=== PATIENT | female | born 1965 | race Caucasian/White ===

== ENCOUNTER 2017-07-06 18:30 | Outpatient (RCR) | payer MEDICAID, SELFPAY ==
--- NOTE | 2017-06-11 13:38 | HP.PTEVAL ---
Patient's Visit Information NADINE PETERSON is a 51 year old F referred to Physical Therapy by Sabino Hunt NP.SAVANNAHPSIT with a diagnosis of DDD AND LUMBAR DISC HERNIATION WITH RADICULOPATHY. Date of Evaluation: 06/11/17 Physical Therapist: Sherron Steen - Visit Plan Frequency: 2-3x /Week Duration: 4-6 Weeks Plan: POSTURE CORRECTION/STRENGTHENING, INSTRUCTION IN APPROPRIATE BODY MECHANICS AND ACTIVITY MODIFICATIONS. DLS STARTING WITH A NEUTRAL SPINE PROGRESSING ROM TOLERATED STARTING JULY 02 2017. CARISSA LE ROM, STRETCHING AND STRENGTHENING. HEP INSTRUCTION. *CURRENTLY 15LB LIFTING LIMIT THAT CAN BE INCREASED BY 5 LBS A WEEK TOLERATED*. PLEASE DO WORK SPECIFIC SIMULATION TASKS WITHIN RESTRICTIONS. - Subjective Subjective: *LUMBAR MICRODISCECTOMY LEFT L4-S1 ON 05/18/17. Work/Leisure: TENTATIVE RTW DATE OF 06/15/17 4 HOURS A DAY PROGRESSING TOLERATED AND LIFTING LIMIT OF 15 LBS CURRENTLY INCREASING 5 LBS A WEEK TOLERATED. WORKS AT [employer] THE [employer]. Disability: NO. Present symptoms: LBP 0-3/10, L BUTTOCK PAIN 0-3/10. PATIENT DENIES CARISSA LE PAIN, NUMBNESS OR TINGLING. Present since: JAN 2017. Currently: 0/10 PAIN RIGHT NOW. IMPROVIING. Commenced as a result of: NO APPARENT REASON. SEE PRIOR PT EVAL FOR DETAILS AT ONSET. PATIENT REPORTS THAT WHEN SHE WENT TO DR. MCGRATH AFTER PT HE ORDERED AN MRI, SENT HER TO DR. QUACH AND SHE HAD SURGERY. Symptoms at onset: LOW BACK. Worse: PROLONGED STANDING OR WALKING. Better: RESTING IN LYING AND SOMETIMES SITTING. Disturbed sleep: NO. Previous history/Previous treatment: PT HERE WITH THIS POINT. NO CHIRO. NO ELLIE'S. Coughing/sneezing/straining: NEGATIVE. Gait: INDEP GAIT WITHOUT AD. Difficulty initiating urinatin: NO. Accidents: NO. Unexplained weight loss: NO. Imaging: MRI PRE SURGERY - 2 HERNIATIONS. ARTHRITIS. DDD. PMH: UNREMARKABLE. Recent major surgery: UNREMARKABLE. OTHER: CURRENTLY WEARING BRACE QUITE A BIT TO REMIND NOT TO BEND. - Objective Sitting Posture: FAIR. Standing Posture: FAIR. Lordosis: REDUCED. Lateral shift: NO. Relevant shift: N/A. Active Correction of posture: NE. Other Observations: THIS PATIENT AMBULATES INDEP'LY INTO PT WITH HER BACK BRACE ON, NO AD'S, GOOD CADANCE AND NO GROSS DEVICATIONS NOTED. Motor deficit: CARISSA LE STRENGTH IS 5/5 WITH MMT EXCEPT HIPS GRADED 4/5. Sensory deficit: NO. CARISSA LE LIGHT TOUCH SENSATION IS INTACT AND SYMMETRICAL. ROM deficit: TIGHT CARISSA HS'S RIGHT > LEFT EVEN THOUGH PATIENT HAS A HISTORY OF L>RIGHT LE SX'S. Dural Signs: NEGATIVE CARISSA LE DURAL SIGNS. Lumbar mvmt loss: NT. OK TO BEGIN LUMBAR ROM JULY [address] SUTTON OFFICE. Core strength: POOR. Palpation: PATIENTS INCISION LOOKS TO BE WELL HEALING WITH ONLY A SLIGHTLY REDEND AREA AT THE VERY BOTTOM. INSTRUCTED PATIENT TO MONITOR DAILY (AND EDUCATED ON SIGNS OF INFECTION) UNTIL COMPLETELY HEALED. - Goals Goal 1:: DECREASE C/O LOW BACK AND LEFT BUTTOCK PAIN Goal Time Frame: 4-6 Weeks Goal 2:: IMPROVE STANDING, WALKING AND WORK FUNCTION Goal Time Frame: 4-6 Weeks Goal 3:: INSTRUCT IN PROPHYLAXIS Goal Time Frame: 4-6 Weeks - Rehabilitation Potential Rehabilitation Potential: Good - Anticipated Interventions Patient/Client Instruction: Educate patient on: Condition, Plan of Care, Risk Factors, Benefits of Fitness Program For the Purpose of:: To improve self management Therapeutic Exercise to Include: Strength training, Body mechanics, Postural training, Flexibilty training, Dynamic Lumbar Stabilization For the Purpose of:: To improve ability of physical actions for home/community/work/leisure Thank you for the opportunity to evaluate your patient. For Medicare and Medicare HMO plans, please review the plan of care and approve it. It will need to be FAXED BACK to us at [phone] for Medicare purposes. Please let me know if there are questions or concerns regarding this plan of care. Physician Signature: Date:
--- NOTE | 2017-11-10 13:45 | HP.PTDCNRP_ITS ---
HP - Discharge Summary (1) - Patient Information NADINE PETERSON was seen in my office for initial evaluation on 06/11/17. The following Plan of Care was established for this patient: Initial Frequency: 2-3x /Week Initial Duration: 4-6 Weeks - Anticipated Interventions Patient/Client Instruction: Educate patient on: Condition, Plan of Care, Risk Factors, Benefits of Fitness Program For the Purpose of:: To improve self management Therapeutic Exercise to Include: Strength training, Body mechanics, Postural training, Flexibilty training, Dynamic Lumbar Stabilization For the Purpose of:: To improve ability of physical actions for home/community/ work/leisure This patient was last seen in our office 07/06/17. Pertinent comments regarding their Physical therapy will appear below: This patient has not returned to Physical Therapy and is appropriate to return to MD for further follow-up as needed. At this point I will be discontinuing this patient from physical therapy. I would be happy to see this patient again in the future if found appropriate by the physician. Thank you! Sherron Steen
== END 2017-07-06 19:00 | disposition home or self-care (01) ==
LOC: PT 18:30
PROVIDERS: Family Provider Family Medicine; PCP Family Medicine; Visit Provider Nurse Practitioner Acute Care
DX: M51.36 Other intervertebral disc degeneration, lumbar region (principal); M51.16 Intervertebral disc disorders with radiculopathy, lumbar region
CPT/HCPCS: 97110; 97162; 97530